=== PATIENT | female | born 1995 | race Two or more races ===

== ENCOUNTER 2025-09-08 08:02 | Day surgery (SDC) | payer OTHER, SELFPAY ==
--- OUTSIDE RECORDS SUMMARY | 2025-08-10 09:15 | XMS_ITS | Encounter Summary ---
Author Organization [facility] Address [address] [place] [address] Care Team Providers Care Didactic Instructor Name Role Phone Beverly Phipps MD Primary Care Provider [phone] Reason for Referral * Consultation (Routine) - Authorized Specialty Diagnoses / Procedures Referred By Mckenna nuñez Referred To Contact Endocrinology Diagnoses Hyperthyroidism Beverly Phipps MD 175 [facility] [address] [place] [address] Phone: tel: fax: [address] [address] Phone: tel: fax: Referral ID Status Reason Start Date Expiration Date Visits Requested Visits Authorized [id number] Authorized Specialty Services Required 08/11/2025 08/11/2026 12 12 * Consultation (Routine) - Closed Specialty Diagnoses / Procedures Referred By Mckenna nuñez Referred To Contact Obstetrics and Gynecology Diagnoses Adult general medical examination Beverly Phipps MD 175 [facility] [address] [place] [address] Phone: tel: fax: Sharon [facility] - [address] [place] [address] Phone: tel: fax: Referral ID Status Reason Start Date Expiration Date V isits Requested Visits Authorized [id number] Closed Specialty Services Required 08/10/2025 08/10/2026 12 12 * Consultation (Routine) - Closed Specialty Diagnoses / Procedures Referred By Mckenna nuñez Referred To Contact Rheumatology Diagnoses Fibromyalgia Beverly Phipps MD [address] [address] Phone: tel: fax: Nas Rg MD [address] [place] [address] Phone: tel: fax: Referral ID Status Reason Start Date Expiration Date V isits Requested Visits Authorized [id number] Closed Specialty Services Required 08/10/2025 08/10/2026 12 12 Reason for Visit * Reason Comments Establish Care Encounter Details Date Type Department Care Team (Latest Contact Info) Description 08/10/2025 9:15 AM EDT Office Visit Internal Medicine - [address] [address] Beverly Phipps MD [address] [place] [phone] Adult general medical examination (Primary Dx); Vitamin D deficiency; Other fatigue; Other abnormal glucose; Encounter for lipid screening for cardiovascular disease; Fibromyalgia; Iron deficiency anemia, unspecified iron deficiency anemia type; Hyperthyroidism Social History Tobacco Use Types Packs/Day Years Used Date Smoking Tobacco: Never Smokeless Tobacco: Never Tobacco Cessation:Counseling Given: Not Answered Alcohol Use Standard Drinks/Week Comments Not Currently 0 (1 standard drink = 0.6 oz pur e alcohol) Education Answer Date Recorded What is the highest level of school you have completed or the highest degree you have received? 8th grade 08/10/2025 Comments Unknown Sex and Gender Information Value Date Recorded Sex Assigned at Not on file Legal Sex Female 12:24 AM EDT Gender Identity Not on file Sexual Orientation Not on file documented as of this encounter Last Filed Vital Signs Vital Sign Reading Time Taken Comments Blood Pressure 92/62 08/10/2025 9:08 AM EDT Pulse 59 08/10/2025 9:08 AM EDT Temperature 36.2 C (97.1 F) 08/10/2025 9:08 AM EDT Respiratory Rate - - Oxygen Saturation 100% 08/10/2025 9:08 AM EDT Inhaled Oxygen Concentration - - Weight 59.9 kg (132 lb) 08/10/2025 9:08 AM EDT Height 152.4 cm (5') 08/10/2025 9:08 AM EDT Body Mass Index 25.78 08/10/2025 9:08 AM EDT documented in this encounter Ordered Prescriptions Prescription Sig Dispense Quantity Refills Last Filled Start Date End Date ascorbic acid (VITAMIN C) 250 mg tablet Take 1 tablet (250 mg total) by mouth 1 (one) time each day. 90 each 3 08/10/2025 08/10/2026 ferrous sulfate 325 mg (65 mg iron) EC tablet Take 1 tablet (325 mg total) by mouth 1 (one) time each day with breakfast. Do not crush, chew, or split. 90 each 3 08/10/2025 08/10/2026 cholecalciferol (Vitamin D3) 50 mcg (2,000 unit) tablet Take 1 tablet (2,000 Units total) by mouth 1 (one) time each day. 90 tablet 3 08/10/2025 08/10/2026 documented in this encounter Progress Notes * Beverly Phipps MD - 08/10/2025 9:15 AM EDTAddended by: BEVERLY PHIPPS on: 08/10/2025 05:16 PM Modules accepted: Orders * Beverly Phipps MD - 08/10/2025 9:15 AM EDTAddended by: BEVERLY PHIPPS on: 08/11/2025 06:01 PM Modules accepted: Orders * Beverly Phipps MD - 08/10/2025 9:15 AM EDT CHIEF COMPLAINT: Establish Care IDENTIFIER: Christina Norton is a 29 y.o. old female. History of Present Illness The patient presents for evaluation of back pain, leg pain, and health maintenance. Generalized body ache: - Reports new back, leg, and generalized body pain and chronic in nature - She has point tenderness, could be fibromyalgia - No recent falls or accidents Abdominal Pain - Occasional abdominal pain Health Maintenance - Last Pap smear was a significant time ago - Plans to schedule eye surgery but was advised to consult a primary care physician first She has no history of smoking, tobacco chewing, electronic cigarette use, vaping, alcohol consumption, or recreational drug use. She is from her , lives with her boyfriend, and has two children. 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 She does not exercise regularly and has no pets. She has no past illnesses. PAST SURGICAL HISTORY: Two C-sections on 12/17/2012 and 11/26/2017. Marital Status: Education Level: Eighth grade Occupation: University employee Alcohol: No Tobacco: No Recreational Drugs: No Living Condition: Lives with boyfriend FAMILY HISTORY Parents and siblings are alive and healthy with no known diseases. Maternal and paternal grandparents are . ROS: as per HPI GENERAL: No malaise, significant weight loss or fever HEENT: No changes in hearing or vision, nose bleeds or other nasal problems NECK: No lumps, goiter, pain or significant neck swelling RESPIRATORY: No cough, wheezing or shortness of breath CARDIOVASCULAR: No chest pain, leg swelling or palpitations BREAST: No lumps, discharge, pain or change in skin GI: No abdominal discomfort, blood in stools or black stools : No dysuria, frequency or incontinence FABRICATOR SPECIAL ITEMS: No abnormal vaginal bleeding or abnormal vaginal discharge. MUSCULOSKELETAL: No joint pain or swelling, back pain, or muscle pain. SKIN: No lesions, rash or itching PSYCH: No sleep disturbance, mood disorder or recent psychosocial stressors. HEMATOLOGY/LYMPHOLOGY No prolonged bleeding, easy bruisability or swollen nodes ENDOCRINE: No cold or heat intolerance, polyuria, polydipsia or goiter. NEURO: No persistent headache, syncope, seizures, weakness or numbness The remainder of the review of systems is noncontributory PAST MEDICAL HISTORY: There are no active problems to display for this patient. Past Surgical History: Procedure Laterality Date SECTION X 2, 12/17/2012, 11/26/2007 1 [facility] and 1 [place] SOCIAL HISTORY: Social History Tobacco Use Smoking status: Never Smokeless tobacco: Never Substance Use Topics Alcohol use: Not Currently FAMILY HISTORY: No family history on file. Family Status Relation Name Status Mother Alive Father Alive Sister Alive Brother Alive MGM MGF PGM PGF No partnership data on file MEDICATIONS DISCONTINUED/REORDERED: There are no discontinued medications. ACTIVE MEDICATIONS: No outpatient medications have been marked as taking for the 08/10/25 encounter (Office Visit) with Beverly Phipps MD. ALLERGIES: No Known Allergies PHYSICAL EXAM: Visit Vitals BP 92/62 (BP Location: Left arm, Patient Position: Sitting, BP Cuff Size: Large adult) Pulse 59 Temp 36.2 ??C (97.1 ??F) (Temporal) Ht 1.524 m (60 ) Wt 59.9 kg (132 lb) SpO2 100% BMI 25.78 kg/m?? Smoking Status Never BSA 1.56 m?? Physical Exam Physical Exam General Appearance: Well appearing and not in acute distress. HEENT: Normocephalic. External ears normal. Nose normal. Mucous membranes are moist. Oropharynx is clear. Eyes: Conjunctivae normal. Respiratory: Clear to auscultation, no wheezing, rales, or rhonchi. Cardiovascular: Regular rate and rhythm, no murmurs, rubs, or gallops. Gastrointestinal: Soft, non-tender, no distention, no masses. Extremities: No leg swelling. Skin: Warm and dry, no rash. Neurological: Alert. LABS/IMAGING: No results found for any previous visit. Results IMPRESSION: 1. Adult general medical examination 2. Vitamin D deficiency 3. Other fatigue 4. Other abnormal glucose 5. Encounter for lipid screening for cardiovascular disease 6. Fibromyalgia PLAN: Adult general medical examination (Primary) - CBC and differential; Future - Hemoglobin A1c; Future - Vitamin B12; Future - Comprehensive metabolic panel; Future - Lipid panel with reflex to direct LDL; Future - Vitamin D 25 hydroxy; Future - Thyroid stimulating hormone with reflex to free t4 and free t3; Future - Ambulatory referral to Obstetrics / Gynecology; Future Vitamin D deficiency - Vitamin D 25 hydroxy; Future Other fatigue - CBC and differential; Future - Vitamin B12; Future - Comprehensive metabolic panel; Future - Thyroid stimulating hormone with reflex to free t4 and free t3; Future Other abnormal glucose - Hemoglobin A1c; Future Encounter for lipid screening for cardiovascular disease - Lipid panel with reflex to direct LDL; Future Fibromyalgia - Ambulatory referral to Rheumatology; Future - C-reactive protein; Future - CHRISTIAN IFA with titer and pattern; Future Assessment & Plan 1. Generalized body pain: Possible fibromyalgia. - Referral to lacing string cutter for further evaluation. - Routine labs ordered to assess vitamin and calcium levels. - Encouraged regular exercise, such as walking. 2. Health maintenance. - Referral for Pap smear. - Declined HIV status check. - Encouraged to download [facility] for medical records and communication. 3. Preoperative clearance. - Plans for eye surgery discussed. - Advised to consult primary care physician for preoperative clearance. - Can contact eye doctor to schedule surgery. Follow-up - Scheduled in 6 months for annual physical. I have obtained verbal consent from Christina Norton prior to the recording. I have advised Christina Norton that she may refuse the recording and require the recording to be turned off at any time during this encounter. Advised the patient to call me if any problems. Patient understands the plan. Patient is in agreement with the plan. Beverly Phipps MD on 08/10/2025 at 4:26 PM EDT documented in this encounter Plan of Treatment Scheduled Referrals Name Type Priority Associated Diagnoses Order Schedule Ambulatory referral to Rheumatology Outpatient Referral Routine Fibromyalgia Expected: 08/24/2025, Expires: 08/10/2026 Ambulatory referral to Obstetrics / Gynecology Outpatient Referral Routine Adult general medical examination 1 Occurrences starting 08/10/2025 until 08/10/2026 Ambulatory referral to Endocrinology Outpatient Referral Routine Hyperthyroidism Expected: 08/18/2025, Expires: 08/11/2026 documented as of this encounter Results * CHRISTIAN IFA with titer and pattern (08/10/2025 9:52 AM EDT) CHRISTIAN Negative Negative 08/11/2025 11:16 AM EDT [facility] Comment:CHRISTIAN performed by ind eulaliact immunofluorescence (IFA) using HEp-2 substrate. Blood Venous blood specimen / Unknown Venipuncture / Unknown 08/10/2025 9:52 AM EDT 08/10/2025 9:52 AM EDT Beverly Phipps MD LAB BLOOD ORDERABLES Final Resul t Performing Organization Address City/[facility]/ZIP Co de Phone Number [facility] [address] [place] [address], [place] [phone] * C-reactive protein (08/10/2025 9:52 AM EDT) [facility] C-Reactive Protein <0.29 <=0.50 mg/dL LAB CHEMISTRY METHOD 08/10/2025 3:37 PM EDT [facility] Blood Venous blood specimen / Unknown Venipuncture / Unknown 08/10/2025 9:52 AM EDT 08/10/2025 9:52 AM EDT us Beverly Phipps MD LAB BLOOD ORDERABLES Final Resul t Performing Organization Address [facility] [[email or web address]] de Phone Number [facility] [address] [place] [address], [place] [phone] * (ABNORMAL) Thyroid stimulating hormone with reflex to free t4 and free t3 (08/10/2025 9:52 AM EDT) [facility] TSH 5.13(H) 0.40 - 4.00 mcIU/mL LAB CHEMISTRY METHOD 08/10/2025 4:43 PM EDT [facility] Blood Venous blood specimen / Unknown Venipuncture / Unknown 08/10/2025 9:52 AM EDT 08/10/2025 9:52 AM EDT us Beverly Phipps MD LAB BLOOD ORDERABLES Final Resul t Performing Organization Address [facility] [[email or web address]] de Phone Number [facility] [address] [place] [address], [place] [phone] * (ABNORMAL) Vitamin D 25 hydroxy (08/10/2025 9:52 AM EDT) Vit D, 25-Hydroxy 17.2(L) 30.0 - 80.0 ng/mL LAB CHEMISTRY METHOD 08/10/2025 4:43 PM EDT [facility] Blood Venous blood specimen / Unknown Venipuncture / Unknown 08/10/2025 9:52 AM EDT 08/10/2025 9:52 AM EDT us Beverly Phipps MD LAB BLOOD ORDERABLES Final Resul t [facility] [address] [place] [address], [place] [phone] * Lipid panel with reflex to direct LDL (08/10/2025 9:52 AM EDT) [facility] Cholesterol 108 0 - 200 mg/dL LAB CHEMISTRY METHOD 08/10/2025 4:00 PM EDT [facility] Triglycerides 38 0 - 150 mg/dL LAB CHEMISTRY METHOD 08/10/2025 4:00 PM [facility] HDL 65 >=40 mg/dL LAB CHEMISTRY METHOD 08/10/2025 4:00 PM [facility] LDL Calculated 35 0 - 100 mg/dL LAB CHEMISTRY METHOD 08/10/2025 4:00 PM [facility] Comment:Estimated LDL Calcul ated using equation: Total cholesterol - HDL cholesterol - (Triglycerides/5) VLDL Cholesterol Scott 7.6 mg/dL LAB CHEMISTRY METHOD 08/10/2025 4:00 PM [facility] Non HDL Chol. (LDL+VLDL) 43 <145 mg/dL LAB CHEMISTRY METHOD 08/10/2025 4:00 PM [facility] Chol/HDL Ratio 1.7 0.0 - 4.4 LAB CHEMISTRY METHOD 08/10/2025 4:00 PM [facility] Blood Venous blood specimen / Unknown Venipuncture / Unknown 08/10/2025 9:52 AM EDT 08/10/2025 9:52 AM EDT Beverly Phipps MD LAB BLOOD ORDERABLES Final Resul t [facility] [address] [place] [address], [place] [phone] * Comprehensive metabolic panel (08/10/2025 9:52 AM EDT) Sodium 137 133 - 145 mmol/L LAB CHEMISTRY METHOD 08/10/2025 4:00 PM [facility] Potassium 4.9 3.5 - 5.5 mmol/L LAB CHEMISTRY METHOD 08/10/2025 4:00 PM [facility] Chloride 109 96 - 110 mmol/L LAB CHEMISTRY METHOD 08/10/2025 4:00 PM [facility] CO2 24 21 - 32 mmol/L LAB CHEMISTRY METHOD 08/10/2025 4:00 PM [facility] Anion Gap 4 3 - 11 LAB CHEMISTRY METHOD 08/10/2025 4:00 PM [facility] Glucose 79 70 - 100 mg/dL LAB CHEMISTRY METHOD 08/10/2025 4:00 PM [facility] BUN 12 5 - 25 mg/dL LAB CHEMISTRY METHOD 08/10/2025 4:00 PM [facility] Creatinine 0.55 0.50 - 1.10 mg/dL LAB CHEMISTRY METHOD 08/10/2025 4:00 PM [facility] eGFR 127 >=60 mL/min/1. 73m2 LAB CHEMISTRY METHOD 08/10/2025 4:00 PM [facility] Comment:Calculation based on the Chronic Kidney Disease Epidemiology Collaboration (CKD-EPI) equation refit without adjustment for race. BUN/Creatinine Ratio 21.8 LAB CHEMISTRY METHOD 08/10/2025 4:00 PM [facility] Calcium 8.9 8.5 - 10.5 mg/dL LAB CHEMISTRY METHOD 08/10/2025 4:00 PM EDT [facility] AST (SGOT) 18 10 - 42 unit/L LAB CHEMISTRY METHOD 08/10/2025 4:00 PM [facility] ALT (SGPT) 20 10 - 60 unit/L LAB CHEMISTRY METHOD 08/10/2025 4:00 PM EDT [facility] Alkaline Phosphatase 73 42 - 121 unit/L LAB CHEMISTRY METHOD 08/10/2025 4:00 PM [facility] Total Protein 7.1 6.0 - 8.0 g/dL LAB CHEMISTRY METHOD 08/10/2025 4:00 PM [facility] Albumin 4.0 3.2 - 5.0 g/dL LAB CHEMISTRY METHOD 08/10/2025 4:00 PM [facility] Total Bilirubin 0.3 0.0 - 1.4 mg/dL LAB CHEMISTRY METHOD 08/10/2025 4:00 PM T [facility] Blood Venous blood specimen / Unknown Venipuncture / Unknown 08/10/2025 9:52 AM EDT 08/10/2025 9:52 AM EDT Beverly Phipps MD LAB BLOOD ORDERABLES Final Resul t [facility] [address] [place] [address], * Vitamin B12 (08/10/2025 9:52 AM EDT) Vitamin B-12 730 250 - 900 pcg/mL LAB CHEMISTRY METHOD 08/10/2025 4:00 PM EDT [facility] Blood Venous blood specimen / Unknown Venipuncture / Unknown 08/10/2025 9:52 AM EDT 08/10/2025 9:52 AM EDT Beverly Phipps MD LAB BLOOD ORDERABLES Final Resul t Performing Organization Address [facility] Co de Phone Number [facility] [address] [place] [address], [place] [phone] * Hemoglobin A1c (08/10/2025 9:52 AM EDT) Hemoglobin A1C 5.4 <6.5 % LAB CHEMISTRY METHOD 08/10/2025 3:18 PM EDT [facility] Mean Bld Glu Estim. 108 mg/dL LAB CHEMISTRY METHOD 08/10/2025 3:18 PM EDT [facility] Blood Venous blood specimen / Unknown Venipuncture / Unknown 08/10/2025 9:52 AM EDT 08/10/2025 9:52 AM EDT Beverly Phipps MD LAB BLOOD ORDERABLES Final Resul t Performing Organization Address [facility] Co de Phone Number [facility] [address] [place] [address], [place] [phone] documented in this encounter Visit Diagnoses Diagnosis Adult general medical examination- Primary Unspecified general medical examination Vitamin D deficiency Other fatigue Other abnormal glucose Encounter for lipid screening for cardiovascular disease Fibromyalgia Unspecified myalgia and myositis Iron deficiency anemia, unspecified iron deficiency anemia type Hyperthyroidism Thyrotoxicosis without mention of goiter or other cause, without mention of thyrotoxic crisis or storm documented in this encounter Care Teams Didactic Instructor Relationship Specialty Start Date End Date Beverly Phipps MD [address] [phone] PCP - General Internal Medicine 07/05/25 documented as of this encounter
--- OUTSIDE RECORDS SUMMARY | 2025-08-16 12:07 | XMS_ITS | Encounter Summary ---
Author Organization [facility] Address [address] [place] [address] Care Team Providers Care Manager Power Name Role Phone Geovany Phipps MD Primary Care Provider [phone] Reason for Visit * Reason Onset Date Comments Pre-op Visit 08/13/2025 Encounter Details Date Type Department Care Team ([facility] st Contact Info) Description 08/13/2025 Telephone Internal Medicine - [place] [address] [facility] [address] [place] [address] Geovany Phipps MD [address] [facility] [address] [place] [phone] Social History Tobacco Use Types Packs/Day Years Used Date Smoking Tobacco: Never Smokeless Tobacco: Never Alcohol Use Standard Drinks/Week Comments Not Currently [...] on file documented as of this encounter Progress Notes * Gail Guevara - 08/13/2025 12:05 PM EDT Pediatric ophthalmology called and requested a pre op appointment for the patient because they willbe having eye muscle surgery on 09/08 they do not need blood work or EKG only office note stating patient is clear. Please advise Cb# [phone] documented in this encounter Plan of Treatment Not on file documented as of this encounter Visit Diagnoses Not on filedocumented in this encounter Care Teams Manager Power Relationship Specialty Start Date End Date Geovany Phipps MD [address] [place] [phone] PCP - General Internal Medicine 07/05/25 documented as of this encounter
--- OUTSIDE RECORDS SUMMARY | 2025-08-16 12:08 | XMS_ITS | Clinical Summary ---
Author Organization [facility] Address [address] [place] [address] Care Team Providers Care Director Peoplesoft Name Role Phone Unavailable Primary Care Provider Unavailabl e Source Comments PLEASE NOTE, if this patient is a minor, it may be UNLAWFUL to discuss sensitive information that is contained in these records (such as FAMILY PLANNING, MENTAL HEALTH or SUBSTANCE ABUSE) with the minor patient's parent or other person without the patient's specific authorization.[facility] Allergies No known active allergies Medications No known medications Active Problems No known active problems Immunizations Immunization Administration Dates Next Due Flu, Preservative Free 11/11/2017 Hep B, Adult/Adol (ZUBRIJI-V-YEEZJ/RECOMBIVAX-ADULT) 05/30/2015,11/12/2014,12/10/2013 INFLUENZA, SEASONAL, INJECTABLE 09/21/2016,09/01 MMR (MMR II/Priorix) 12/10/2014,11/12/2014 PFIZER COVID VACCINE, PURPLE CAP, 12+ 11/27/2021 TDAP 05/30/2015 Td (adult),2 Lf tetanus toxo id (TDVAX), preservative free 11/12/2014 Varicella (Varivax), Live Vaccine 06/30/2015 Family History Relation Name Status Comments Brother Alive Father Alive Mother Alive Sister 1 Alive Sister 2 Alive Son Alive Social History Tobacco Use Types Packs/Day Years Used Date Smoking Tobacco: Never Smokeless Tobacco: Never Alcohol Use Standard Drinks/Week Comments No 0 (1 standard drink = 0.6 oz pur e alcohol) Social Connections Answer Date Recorded Social Connections and Isolation 0 07/19/2019 Financial Resource Strain Answer Date R ecorded Financial Resource Strain 0 2018 Stress Answer Date Recorded Stress 0 07/19/2019 Physical Activity Answer Date Recorded Physical Activity 0 07/19/2019 Food Insecurity Answer Date Recorded Food 0 07/19/2019 Transportation Needs Answer Date Record ed Transportation 0 07/19/2019 Housing Stability Answer Date Recorded Housing 0 07/19/2019 Safety and Environment Answer Date Vinny rded Safety 0 07/19/2019 Utilities Answer Date Recorded Utilities 0 07/19/2019 Employment Answer Date Recorded Employment 0 07/19/2019 Comments No Sex and Gender Information Value Date Recorded Sex Assigned at Female 11/11/2017 1:58 PM PST Legal Sex Female 6:11 AM PDT Gender Identity Female 11/11/2017 1:58 PM PST Sexual Orientation Don't know 11/11/2017 1: 58 PM PST Last Filed Vital Signs Vital Sign Reading Time Taken Comments Blood Pressure 120/80 09/21/2016 4:13 PM EDT Pulse 70 09/21/2016 4:13 PM EDT Temperature 36.6 C (97.8 F) 09/21/2016 4:13 PM EDT Respiratory Rate 12 09/21/2016 4:13 PM EDT Oxygen Saturation - - Inhaled Oxygen Concentration - - Weight 66.9 kg (147 lb 6.4 oz) 09/21/2016 4:13 P M EDT Height 160 cm (5' 3 ) 09/21/2016 4:13 PM EDT Body Mass Index 26.11 09/21/2016 4:13 PM EDT Plan of Treatment Health Maintenance Due Date Last Done Comments Anxiety Screening 1994 HPV Screening 1994 Hepatitis C Screening 1994 Pap + HPV 1994 Tobacco Screening 1994 Relationship Safety Screening/Counseling 2009 Cervical Cancer Screening 2015 Pap Smear 2015 Annual Wellness (Adult): Indicated (All Coverage) 09/21/2017 09/21/2016, 09/01/2015 Hypertension Screening (#1) 09/21/2019 Imm-HPV (1 - 3-dose SCDM series) 2021 Alcohol and Drug Screen 11/25/2024 09/21/20 16, 09/01/2015, 09/01/2015, Additional history exists Depression Annual Screen 11/25/2024 09/01/2015 Imm-DTaP/Tdap/Td (2 - Td or Tdap) 05/30/2025 015, 11/12/2014 [id number] ( season) 2025 11/27/2021, 05/16/2021, 04/25/2021 Imm-Influenza (#1) 2025 11/11/2017, 1 , 09/01/2015 HIV Screening Completed 05/30/2015 Imm-Hepatitis B Completed 05/30/2015, 10/25, 12/10/2013 Cervical Ablation/Cold-Knife Conization Discontinued Cervical Cryotherapy Discontinued Colposcopy Discontinued Endometrial Biopsy Discontinued Excision/Leep Discontinued HPV Genotyping Discontinued Vaginal Pap Discontinued Vulvoscopy Discontinued Procedures Procedure Name Priority Date/Time Associated Diagnosis Comments ANTIBODY HIV-1&HIV-2 SINGLE RESULT Routine 05/30/2015 1:54 PM EDT Health examination of defined subpopulation from Last 3 Months or Most Recently Relevant to Health Maintenance Results * HIV-1 & HIV-2 ANTIBODIES (05/30/2015 1:54 PM EDT) HIV 1 AND 2 ANTIBODY SCREEN NEGATIVE NEGATIVE [facility] Blood specimen (specimen) Blood / Unknown 05/30/2015 1:54 PM EDT 05/30/2015 2:13 PM EDT Narrative [facility] - 05/30/2015 9:34 PM EDT [employer] [address] [place] [address] PT ID [id number] ORD# [id number] us Teresita Stevenson MD LAB - BLOOD DRA Rosales Final Result [facility] [address] [place] [address], [place] [phone] from Last 3 Months or Most Recently Relevant to Health Maintenance Insurance [facility] [employer] Member Subscriber Plan / Payer (Ef fective 2025-Present) Name:Christina Norton Relation to Subscriber:Self Name:Christina Norton Payer ID:[id number] Group ID:Not on file Type:Medicaid Address: [facility] [address] [place] [address]
--- OUTSIDE RECORDS SUMMARY | 2025-08-16 12:08 | XMS_ITS | Clinical Summary ---
Author Organization [facility] Address [address] [place] [address] Phone Care Team Providers Care Copy Camera Operator Name Role Phone Geovany Phipps MD Primary Care Provider [phone] Allergies No known active allergies Medications cholecalciferol (Vitamin D3) 50 mcg (2,000 unit) tablet Take 1 tablet (2,000 Units total) by mouth 1 (one) time each day. 90 tablet 3 08/10/2025 6 Active ferrous sulfate 325 mg (65 mg iron) EC tablet Take 1 tablet (325 mg total) by mouth 1 (one) time each day with breakfast. Do not crush, chew, or split. 90 each 3 08/10/2025 6 Active ascorbic acid (VITAMIN C) 250 mg tablet Take 1 tablet (250 mg total) by mouth 1 (one) time each day. 90 each 3 08/10/2025 6 Active Active Problems Problem Noted Date Diagnosed Date Hyperthyroidism 08/11/2025 Encounters Date Type Department Care Team Description 08/13/2025 Telephone Internal Medicine [address] [phone] Geovany Phipps MD 08/10/2025 9:15 AM EDT Office Visit Internal [address] [phone] Geovany Phipps MD Adult general medical examination (Primary Dx); Vitamin D deficiency; Other fatigue; Other abnormal glucose; Encounter for lipid screening for cardiovascular disease; Fibromyalgia; Iron deficiency anemia, unspecified iron deficiency anemia type; Hyperthyroidism from Last 3 Months Surgical History Surgery Date Site/Laterality Comments SECTION X 2, 12/17/2012, 11/26/2007 1 [facility] and 1 [place] Family History Relation Name Status Comments Brother Alive Father Alive Maternal Grandfather Maternal Grandmother Mother Alive Paternal Grandfather Paternal Grandmother Sister Alive Social History Tobacco Use Types Packs/Day [...] on file Sexual Orientation Not on file Obstetrics History Last Filed Vital Signs Vital Sign Reading [...] Mass Index 25.78 08/10/2025 9:08 AM EDT Plan of Treatment Health Maintenance Due Date Last Done Comments Cervical Cancer Screening: P ap Smear 2015 Depression Screening 11/25/2024 DTaP,Tdap,and Td Vaccines (3 - Td or Tdap) 05/30/2025 05/30/2015, 11/12/2014 Hepatitis C Screening 06/20/2025 Social Influencers of Health Screening 06/20/2025 COVID-19 Vaccine (4 - 2024-2 6 season) 2025 11/27/2021, 05/16/2021, 04/25/2021 Influenza Vaccine (#1) 2025 7, 09/21/2016, 09/01/2015 Cholesterol Screening (Lipid Panel) 08/10/2030 08/10/2025 RSV Immunization Adult Patients (1 - 1-dose 75+ series) 2069 MMR Vaccines Aged Out 12/10/2014, 11/12/2014 No longer eligible based on patient's age to complete this topic HIV Screening Completed 05/30/2015 Hepatitis B Vaccines Completed 05/30/2015, 11/12/2014, 12/10/2013 Varicella Vaccines Aged Out 06/30/2015 No longer eligible based on patient's age to complete this topic HIB Vaccines Aged Out No longer eligi ble based on patient's age to complete this topic HPV Vaccines Aged Out No longer eligi ble based on patient's age to complete this topic Hepatitis A Vaccines Aged Out No long er eligible based on patient's age to complete this topic IPV Vaccines Aged Out No longer eligi ble based on patient's age to complete this topic Meningococcal ACWY Vaccine Aged Out N o longer eligible based on patient's age to complete this topic Meningococcal B Vaccine Aged Out No l onger eligible based on patient's age to complete this topic Pneumococcal Vaccine: Pediatrics (0 to 5 Years) and At-Risk Patients (6 to 49 Years) Aged Out No longer eligible b ased on patient's age to complete this topic RSV Immunization Patients Under 20 months Aged Out No longer eligible b ased on patient's age to complete this topic Procedures Procedure Name Priority Date/Time Associated Diagnosis Comments TRIIODOTHYRONINE FREE Routine 08/10/2025 9:52 AM EDT Adult general medical examination Other fatigue FREE THYROXINE WITH REFLEX TO FREE TRIIODOTHYRONINE Routine 08/10/2025 9:52 AM EDT Adult general medical examination Other fatigue CBC WITH AUTO DIFFERENTIAL Routine 08/10/2025 9:52 AM EDT Adult general medical examination Other fatigue CBC AND DIFFERENTIAL Routine 08/10/2025 9:52 AM EDT Adult general medical examination Other fatigue HEMOGLOBIN A1C Routine 08/10/2025 9:52 AM EDT Adult general medical examination Other abnormal glucose VITAMIN B12 Routine 08/10/2025 9:52 AM EDT Adult general medical examination Other fatigue COMPREHENSIVE METABOLIC PANEL Routine 08/10/2025 9:52 AM EDT Adult general medical examination Other fatigue LIPID PANEL WITH REFLEX TO DIRECT LDL Routine 08/10/2025 9:52 AM EDT Adult general medical examination Encounter for lipid screening for cardiovascular disease VITAMIN D 25 HYDROXY Routine 08/10/2025 9:52 AM EDT Adult general medical examination Vitamin D deficiency THYROID STIMULATING HORMONE WITH REFLEX TO FREE T4 AND FREE T3 Routine 08/10/2025 9:52 AM EDT Adult general medical examination Other fatigue C-REACTIVE PROTEIN Routine 08/10/2025 9: 52 AM EDT Fibromyalgia CHRISTIAN IFA WITH TITER AND PATTERN Routine 08/10/2025 9:52 AM EDT Fibromyalgia from Last 3 Months Results * (ABNORMAL) Thyroid stimulating hormone with reflex to free t4 and free t3 (08/10/2025 9:52 AM EDT) TSH 5.13(H) 0.40 - 4.00 mcIU/mL LAB CHEMISTRY METHOD 08/10/2025 4:43 PM EDT [facility] Blood Venous blood specimen / Unknown Venipuncture / Unknown 08/10/2025 9:52 AM EDT 08/10/2025 9:52 AM EDT us Geovany Phipps MD LAB BLOOD ORDERABLES Final Resul t [facility] [address] [place] [address], [place] [phone] * Free thyroxine with reflex to free triiodothyronine (08/10/2025 9:52 AM EDT) Free T4 0.93 0.70 - 1.80 ng/dL LAB CHEMISTRY METHOD 08/10/2025 5:15 PM EDT [facility] Blood Venous blood specimen / Unknown Venipuncture / Unknown 08/10/2025 9:52 AM EDT 08/10/2025 9:52 AM EDT Geovany Phipps MD LAB BLOOD ORDERABLES Final Resul t [facility] [address] [place] [address], [place] [phone] * Lipid panel with reflex to direct LDL (08/10/2025 9:52 AM EDT) Cholesterol 108 0 - 200 mg/dL LAB CHEMISTRY METHOD 08/10/2025 4:00 PM EDT [facility] Triglycerides 38 0 - 150 mg/dL LAB CHEMISTRY METHOD 08/10/2025 4:00 PM EDT [facility] HDL 65 >=40 mg/dL LAB CHEMISTRY METHOD 08/10/2025 4:00 PM EDT [facility] LDL Calculated 35 0 - 100 mg/dL LAB CHEMISTRY METHOD 08/10/2025 4:00 PM T [facility] Comment:Estimated LDL Calcul ated using equation: Total cholesterol - HDL cholesterol - (Triglycerides/5) VLDL Cholesterol Scott 7.6 mg/dL LAB CHEMISTRY METHOD 08/10/2025 4:00 PM EDT [facility] Non HDL Chol. (LDL+VLDL) 43 <145 mg/dL LAB CHEMISTRY METHOD 08/10/2025 4:00 PM T [facility] Chol/HDL Ratio 1.7 0.0 - 4.4 LAB CHEMISTRY METHOD 08/10/2025 4:00 PM [facility] Blood Venous blood specimen / Unknown Venipuncture / Unknown 08/10/2025 9:52 AM EDT 08/10/2025 9:52 AM EDT us Geovany Phipps MD LAB BLOOD ORDERABLES Final Resul t Performing Organization Address City/[facility]/ZIP Co de Phone Number [facility] [address] [place] [address], [place] [phone] * CHRISTIAN IFA with titer and pattern (08/10/2025 9:52 AM EDT) Pathologist [facility] CHRISTIAN Negative Negative 08/11/2025 11:16 AM EDT [facility] Comment:CHRISTIAN performed by ind irect immunofluorescence (IFA) using HEp-2 substrate. Blood Venous blood specimen / Unknown Venipuncture / Unknown 08/10/2025 9:52 AM EDT 08/10/2025 9:52 AM EDT Geovany Phipps MD LAB BLOOD ORDERABLES Final Resul t Performing Organization Address [facility]/ZIP Co de Phone Number [facility] [address] [place] [address], [place] [phone] * (ABNORMAL) CBC auto differential (08/10/2025 9:52 AM EDT) [facility] WBC 5.4 4.8 - 10.8 K/mcL LAB HEMETOLOGY METHOD 08/10/2025 2:17 PM EDT [facility] RBC 3.70(L) 3.80 - 4.80 M/mcL LAB HEMETOLOGY METHOD 08/10/2025 2:17 PM EDT [facility] Hemoglobin 9.7(L) 11.5 - 16.0 g/dL LAB HEMETOLOGY METHOD 08/10/2025 2:17 PM EDT [facility] Hematocrit 32.1(L) 35.0 - 47.0 % LAB HEMETOLOGY METHOD 08/10/2025 2:17 PM EDT [facility] MCV 85.8 79.0 - 98.0 FL LAB HEMETOLOGY METHOD [facility]25 [facility] MCH 25.9(L) 27.0 - 32.0 pcg LAB HEMETOLOGY METHOD 08/10/2025 2:17 PM [facility] MCHC 30.2(L) 32.0 - 37.0 g/dL LAB HEMETOLOGY METHOD 08/10/2025 2:17 PM [facility] RDW 15.0 11.0 - 15.0 % LAB HEMETOLOGY METHOD 08/10/2025 2:17 PM [facility] Platelets 388 130 - 400 K/mcL LAB HEMETOLOGY METHOD 08/10/2025 2:17 PM [facility] MPV 10.3 7.0 - 11.0 FL LAB HEMETOLOGY METHOD 08/10/2025 2:17 PM [facility] NRBC 0.0 <1.0 % LAB HEMETOLOGY METHOD 08/10/2025 2:17 PM [facility] NRBC Absolute 0.00 <0.10 K/mcL LAB HEMETOLOGY METHOD 08/10/2025 2:17 PM [facility] Neutrophils Relative 50.2 % LAB HEMETOLOGY METHOD 08/10/2025 2:17 PM [facility] Lymphocytes Relative 34.7 % LAB HEMETOLOGY METHOD 08/10/2025 2:17 PM [facility] Monocytes Relative 9.4 % LAB HEMETOLOGY METHOD 08/10/2025 2:17 PM [facility] Eosinophils Relative 4.8 % LAB HEMETOLOGY METHOD 08/10/2025 2:17 PM [facility] Basophils Relative 0.7 % LAB HEMETOLOGY METHOD 08/10/2025 2:17 PM [facility] Immature Granulocytes Relative 0.2 % LAB HEMETOLOGY METHOD 08/10/2025 2:17 PM EDT [facility] Neutrophils Absolute 2.73 1.50 - 7.00 K/mcL LAB HEMETOLOGY METHOD 08/10/2025 2:17 PM EDT [facility] Lymphocytes Absolute 1.89 1.00 - 5.00 K/mcL LAB HEMETOLOGY METHOD 08/10/2025 2:17 PM EDT [facility] Monocytes Absolute 0.51 0.20 - 1.00 K/mcL LAB HEMETOLOGY METHOD 08/10/2025 2:17 PM EDT [facility] Eosinophils Absolute 0.26 0.00 - 0.50 K/mcL LAB HEMETOLOGY METHOD 08/10/2025 2:17 PM EDT [facility] Basophils Absolute 0.04 0.00 - 0.20 K/mcL LAB HEMETOLOGY METHOD 08/10/2025 2:17 PM EDT [facility] Immature Granulocytes Absolute 0.01 0.00 - 0.03 K/mcL LAB HEMETOLOGY METHOD 08/10/2025 2:17 PM EDT [facility] Blood Venous blood specimen / Unknown Venipuncture / Unknown 08/10/2025 9:52 AM EDT 08/10/2025 9:52 AM EDT us Geovany Phipps MD LAB BLOOD ORDERABLES Final Resul t [facility] [address] [place] [address], * (ABNORMAL) Vitamin D 25 hydroxy (08/10/2025 9:52 AM EDT) Vit D, 25-Hydroxy 17.2(L) 30.0 - 80.0 ng/mL LAB CHEMISTRY METHOD 08/10/2025 4:43 PM EDT [facility] Blood Venous blood specimen / Unknown Venipuncture / Unknown 08/10/2025 9:52 AM EDT 08/10/2025 9:52 AM EDT us Geovany Phipps MD LAB BLOOD ORDERABLES Final Resul t Performing Organization Address City/[facility] Co de Phone Number [facility] [address] [place] [address], [place] [phone] * C-reactive protein (08/10/2025 9:52 AM EDT) [facility] C-Reactive Protein <0.29 <=0.50 mg/dL LAB CHEMISTRY METHOD 08/10/2025 3:37 PM EDT [facility] Blood Venous blood specimen / Unknown Venipuncture / Unknown 08/10/2025 9:52 AM EDT 08/10/2025 9:52 AM EDT us Geovany Phipps MD LAB BLOOD ORDERABLES Final Resul t Performing Organization Address [email or web address]] de Phone Number [facility] [address] [place] [address], [place] [phone] * (ABNORMAL) Triiodothyronine free (08/10/2025 9:52 AM EDT) [facility] T3, Free 424(H) 230 - 420 pcg/dL LAB CHEMISTRY METHOD 08/10/2025 5:58 PM EDT [facility] Blood Venous blood specimen / Unknown Venipuncture / Unknown 08/10/2025 9:52 AM EDT 08/10/2025 9:52 AM EDT us Geovany Phipps MD LAB BLOOD ORDERABLES Final Resul t Performing Organization Address [facility] Co de Phone Number [facility] [address] [place] [address], [place] [phone] * Hemoglobin A1c (08/10/2025 9:52 AM EDT) [facility] Hemoglobin A1C 5.4 <6.5 % LAB CHEMISTRY METHOD 08/10/2025 3:18 PM EDT [facility] Mean Bld Glu Estim. 108 mg/dL LAB CHEMISTRY METHOD 08/10/2025 3:18 PM EDT [facility] Blood Venous blood specimen / Unknown Venipuncture / Unknown 08/10/2025 9:52 AM EDT 08/10/2025 9:52 AM EDT Geovany Phipps MD LAB BLOOD ORDERABLES Final Resul t Performing Organization Address City/[facility]/ZIP Co de Phone Number [facility] [address] [place] [address], [place] [phone] * Vitamin B12 (08/10/2025 9:52 AM EDT) Pathologist [facility] Vitamin B-12 730 250 - 900 pcg/mL LAB CHEMISTRY METHOD 08/10/2025 4:00 PM EDT [facility] Blood Venous blood specimen / Unknown Venipuncture / Unknown 08/10/2025 9:52 AM EDT 08/10/2025 9:52 AM EDT Geovany Phipps MD LAB BLOOD ORDERABLES Final Resul t Performing Organization Address [facility]/ZIP Co de Phone Number [facility] [address] [place] [address], [place] [phone] * Comprehensive metabolic panel (08/10/2025 9:52 AM EDT) [facility] Sodium 137 133 - 145 mmol/L LAB CHEMISTRY METHOD 08/10/2025 4:00 PM EDT [facility] Potassium 4.9 3.5 - 5.5 mmol/L LAB CHEMISTRY METHOD 08/10/2025 4:00 PM EDT [facility] Chloride 109 96 - 110 mmol/L LAB CHEMISTRY METHOD 08/10/2025 4:00 PM [facility] CO2 24 21 - 32 mmol/L LAB CHEMISTRY METHOD 08/10/2025 4:00 PM [facility] Anion Gap 4 3 - 11 LAB CHEMISTRY METHOD 08/10/2025 4:00 PM [facility] Glucose 79 70 - 100 mg/dL LAB CHEMISTRY METHOD 08/10/2025 4:00 PM [facility] BUN 12 5 - 25 mg/dL LAB CHEMISTRY METHOD 08/10/2025 4:00 PM [facility] Creatinine 0.55 0.50 - 1.10 mg/dL LAB CHEMISTRY METHOD 08/10/2025 4:00 PM [facility] eGFR 127 >=60 mL/min/1. 73m2 LAB CHEMISTRY METHOD 08/10/2025 4:00 PM [facility] Comment:Calculation based on the Chronic Kidney Disease Epidemiology Collaboration (CKD-EPI) equation refit without adjustment for race. BUN/Creatinine Ratio 21.8 LAB CHEMISTRY METHOD 08/10/2025 4:00 PM [facility] Calcium 8.9 8.5 - 10.5 mg/dL LAB CHEMISTRY METHOD 08/10/2025 4:00 PM [facility] AST (SGOT) 18 10 - 42 unit/L LAB CHEMISTRY METHOD 08/10/2025 4:00 PM [facility] ALT (SGPT) 20 10 - 60 unit/L LAB CHEMISTRY METHOD 08/10/2025 4:00 PM [facility] Alkaline Phosphatase 73 42 - 121 unit/L LAB CHEMISTRY METHOD 08/10/2025 4:00 PM [facility] Total Protein 7.1 6.0 - 8.0 g/dL LAB CHEMISTRY METHOD 08/10/2025 4:00 PM [facility] Albumin 4.0 3.2 - 5.0 g/dL LAB CHEMISTRY METHOD 08/10/2025 4:00 PM EDT [facility] Total Bilirubin 0.3 0.0 - 1.4 mg/dL LAB CHEMISTRY METHOD 08/10/2025 4:00 PM EDT [facility] Blood Venous blood specimen / Unknown Venipuncture / Unknown 08/10/2025 9:52 AM EDT 08/10/2025 9:52 AM EDT Geovany Phipps MD LAB BLOOD ORDERABLES Final Resul t [facility] [address] [place] [address], from Last 3 Months Insurance [facility] [email or web address] Care Teams Copy Camera Operator Relationship Specialty Start Date End Date Geovany Phipps MD [address] [place] [phone] PCP - General Internal Medicine 07/05/25
[2025-09-02 11:28] VITALS: BMI 25.8
[2025-09-08] VITALS (13 sets, daily range): BP systolic 91–114; BP diastolic 58–82; PULSE 70–83; RESP 12–21; TEMP 36.6–37.1; O2SAT 99–100
[2025-09-08 09:45] LABS: UPreg QC Valid YES
[2025-09-08] MEDS: Lactated Ringers 1,000 ML 100 ML IVCONT (10:03)
--- NOTE | 2025-09-08 11:30 | HO.ANESPROP2 ---
Documented by User: Jeannie Barksdale NP 09/07/25 08:33 HPI - Anesthesia Eval Consult details Narrative: 29yo F for RIGHT Lateral Rectus Eye Muscle Recession,RIGHT Medial Rectus Resection PMFSH Past Medical History Medical History (Updated 09/02/25 @ 11:32 by Samia Hsu RN) Anemia Hyperthyroidism GERD (gastroesophageal reflux disease) Surgical History Surgical History (Updated 09/02/25 @ 11:27 by Samia Hsu RN) History of (2012) Social History Social History Are you a primary respiratory care specialist to a significant other at home: No Do you presently have visiting nurse or other home services: No Patient Tobacco Use Status: Never used Tobacco Second Hand Smoke Exposure: No Use of substances other than those prescribed or required for medical reasons: No Have you been hit, kicked, punched, or otherwise hurt by someone within the past year? If so, by whom?: No Are you DNR?: No Advance Directives: No Advance Directives Information Provided: Yes Advance Directives on File: No Patient : No : No Poor oral hygiene: No Meds Allergies Allergy/AdvReac Type Severity Reaction Status Date / Time No Known Allergies Allergy Verified 09/02/25 11:27 Home Medications ?Medication ?Instructions ?Recorded ?Confirmed ?Last Taken ?Type ascorbic acid (vitamin C) 250 mg 250 mg PO DAILY 09/02/25 09/02/25 Unknown History tablet cholecalciferol (vitamin D3) 50 50 mcg PO DAILY 09/02/25 09/02/25 Unknown History mcg (2,000 unit) tablet (Vitamin D3) ferrous sulfate 325 mg (65 mg 325 mg PO DAILY 09/02/25 09/02/25 Unknown History iron) tablet pantoprazole 40 mg tablet,delayed 40 mg PO DAILY 09/02/25 09/02/25 Unknown History release (Protonix) Exam Height,Weight and Vital Signs: Height 5 ft Weight 59.874 kg Assessment and Plan Assessment Anesthesia Assessment: Chart Reviewed Documented by User: Miriam Shelton DO 09/08/25 11:48 [facility] Past Medical History Medical History (Updated 09/02/25 @ 11:32 by Samia Hsu, SHIRIN) Anemia Hyperthyroidism GERD (gastroesophageal reflux disease) Family History Family history of problems with anesthesia: No Surgical History Surgical History (Updated 09/02/25 @ 11:27 by Samia Hsu, SHIRIN) History of (2012) History of Problems with Anesthesia: No Social History Social History Are you a primary respiratory care specialist to a significant other at home: No Do you presently have visiting nurse or other home services: No Patient Tobacco Use Status: Never used Tobacco Second Hand Smoke Exposure: No Use of substances other than those prescribed or required for medical reasons: No Have you been hit, kicked, punched, or otherwise hurt by someone within the past year? If so, by whom?: No Are you DNR?: No Advance Directives: No Advance Directives Information Provided: Yes Advance Directives on File: No Patient : No : No Poor oral hygiene: No Meds Allergies Allergy/AdvReac Type Severity Reaction Status Date / Time No Known Allergies Allergy Verified 09/02/25 11:27 Home Medications ?Medication ?Instructions ?Recorded ?Confirmed ?Last Taken ?Type ascorbic acid (vitamin C) 250 mg 250 mg PO DAILY 09/02/25 09/02/25 Unknown History tablet cholecalciferol (vitamin D3) 50 50 mcg PO DAILY 09/02/25 09/02/25 Unknown History mcg (2,000 unit) tablet (Vitamin D3) ferrous sulfate 325 mg (65 mg 325 mg PO DAILY 09/02/25 09/02/25 Unknown History iron) tablet pantoprazole 40 mg tablet,delayed 40 mg PO DAILY 09/02/25 09/02/25 Unknown History release (Protonix) Exam Exam Date and Time: 09/08/25 1130 Height,Weight and Vital Signs: Vital Signs Temperature 98.8 F 09/08/25 09:50 Pulse Rate 73 09/08/25 09:50 Respiratory Rate 16 09/08/25 09:50 Blood Pressure 91/58 L 09/08/25 09:50 Pulse Oximetry 100 09/08/25 09:50 Oxygen Delivery Method Room Air 09/08/25 09:50 Temperature 98.8 F 09/08/25 09:50 Pulse Rate 73 09/08/25 09:50 Respiratory Rate 16 09/08/25 09:50 Blood Pressure 91/58 L 09/08/25 09:50 Pulse Oximetry 100 09/08/25 09:50 Oxygen Delivery Method Room Air 09/08/25 09:50 Height 5 ft Weight 59.874 kg Airway Mallampati Class: II TM Dist: >3cm Neck ROM: Full Loose/Missing/Broken Teeth: Yes (missing several molars) Heart: S1S2 Lungs: CTAB Assessment and Plan Assessment Anesthesia Assessment: Anesthesia Plan Discussed and Chart Reviewed Final Anesthetic Review Family History of Problems with Anesthesia: No History of Problems with Anesthesia: No NPO: Yes ASA Class: II Final Preanesthetic Review: No Changes in Pt Med Stat, Meds/Allgs Chart Reviewed, Consent Obtained/Reviewed and Anes Risks/Benef Reviewed Patient Risk: Low Procedure Risk: Low Anesthetic Plan Anesthetic Plan: GA and Agree w/ Assess. and Plan Disposition: Standard PACU
[2025-09-08] MEDS: Tetracaine HCl/PF 0.5% Oph Sol 4 ML DROPS 1 DROP EYE-RIGHT ×3 (13:23→14:10)
[2025-09-08] MEDS: oxyCODONE HCl Immed Release 5 MG TABLET PO (13:27)
--- NOTE | 2025-09-08 13:34 | HO.OPHTHAL ---
Ophthalmology Operative Note Date of Service: 09/08/25 Narrative: Diagnosis exotropia. Procedures 1. Recession of right lateral rectus 10 mm 2. Resection of right medial rectus [address] Catherine. Anesthesia general. Complications none. The patient was brought to the operating room placed under general anesthesia. The right eye was prepped and draped in the usual sterile ophthalmic fashion. A lid speculum was placed in the eye and incisions made down to bare sclera in the inferotemporal fornix. The lateral rectus was hooked and secured with a double-armed Vicryl suture. It was disinserted from the globe and reattached to a position 10 mm behind the original insertion. Conjunctiva was closed with interrupted Vicryl sutures. An incision was then made down to bare sclera in the inferonasal fornix. The medial rectus was hooked and dissected free of its overlying fascial attachments. A muscle clamp was placed near the insertion and an 8 mm resection was marked off with cautery. The resection point was secured with a double-armed Vicryl suture and the distal muscle resected. The resection point was then drawn forward to the original insertion with the Vicryl suture. Conjunctiva was closed with interrupted Vicryl sutures. The patient was then awoken from general anesthesia and discharged to postoperative recovery in good condition.
== END 2025-09-08 14:23 | disposition home or self-care (01) ==
PROVIDERS: Nurse Practitioner; PCP Student in an Organized Health Care Education/Training Program; Visit Provider Ophthalmology
PROC: (CPT 67312; principal; 2025-09-08 12:10)
DX: H50.15 Alternating exotropia (principal); E05.90 Thyrotoxicosis, unspecified without thyrotoxic crisis or storm; K21.9 Gastro-esophageal reflux disease without esophagitis; Z79.899 Other long term (current) drug therapy
CPT/HCPCS: 67312; 81025; J0131; J1100; J1596; J1885; J2003; J2405; J2704; J3010